=== PATIENT | female | born 1935 | race Caucasian/White ===

== ENCOUNTER 2020-01-21 14:49 | Emergency (ER) | payer OTHER ==
[~2020-01-21] VITALS: Ht 162.6 cm; Wt 81.6 kg
[2020-01-21] MEDS ORDERED: TOPROL XL25 M1 (15:04)
[2020-01-21] MEDS ORDERED: NORVASC5 MG (15:05)
== END 2020-01-21 22:41 | disposition home or self-care (01) ==
LOC: ER 14:49
DX: I16.0 Hypertensive urgency (principal); I10 Essential (primary) hypertension; R42 Dizziness and giddiness